=== PATIENT | female | born 1970 | race Caucasian/White ===

== ENCOUNTER 2022-01-24 13:22 | Outpatient (RCR) | payer OTHER, SELFPAY | END 2022-02-05 23:59 | disposition home or self-care (01) | LOC: CCIC 13:22 | PROVIDERS: PCP Internal Medicine; Visit Provider Internal Medicine Hematology & Oncology | DX: C50.912 Malignant neoplasm of unspecified site of left female breast (principal); Z17.0 Estrogen receptor positive status [ER+]; Z79.811 Long term (current) use of aromatase inhibitors; R23.2 Flushing; N95.2 Postmenopausal atrophic vaginitis; G47.00 Insomnia, unspecified; F41.9 Anxiety disorder, unspecified; F32.A Depression, unspecified; I89.0 Lymphedema, not elsewhere classified; R63.4 Abnormal weight loss | CPT/HCPCS: 99212; 99213; 99214 ==

== ENCOUNTER 2022-07-27 15:46 | Outpatient (CLI) | payer OTHER, SELFPAY ==
[2022-07-27 17:10] LABS: Chloride* 104 mmol/L (96-114); Potassium* 4.2 mmol/L (3.6-5.1); Sodium* 137 mmol/L (135-149)
[2022-07-27 17:13] LABS: Blood Urea Nitrogen* 18 mg/dL (7-30); Carbon Dioxide* 24 mmol/L (20-32); Creatinine* 0.7 mg/dL (0.5-1.5); Estimated Glomerular Filt Rate 105 ml/min; Glucose* 87 mg/dL (60-115)
[2022-07-27 17:14] LABS: Calcium* 9.7 mg/dL (8.4-10.6)
== END 2022-07-27 15:47 | disposition home or self-care (01) ==
LOC: NFLDREF 15:47
PROVIDERS: PCP Internal Medicine; Visit Provider Internal Medicine
DX: Z01.818 Encounter for other preprocedural examination (principal)
CPT/HCPCS: 80048

== ENCOUNTER 2022-09-22 07:59 | Outpatient (CLI) | payer OTHER, SELFPAY ==
--- NOTE | 2022-09-22 08:15 | CRLHL7_ITS ---
For Patients: As a result of the Cures Act, medical imaging exams and procedure reports are released immediately into your electronic medical record. You may view this report before your referring provider. If you have questions, please contact your health care provider. LEFT BREAST ULTRASOUND CLINICAL HISTORY: LEFT breast swelling and pain post surgery. COMPARISON: 07/24/2018 ultrasound, 04/29/2018 breast MRI. TECHNIQUE: Real-time ultrasound imaging of LEFT breast with imaging documentation. FINDINGS: Postoperative changes mastectomy with implant reconstruction noted on the LEFT including recent postoperative changes of breast implant revision. There is mild diffuse increased vascularity within the LEFT breast tissue particularly laterally with associated heterogeneously hypoechoic edematous tissue without drainable fluid collection or discernible abscess. Trace amount of fluid surrounds the implant at the medial aspect. IMPRESSION: Sonographic findings are most consistent with mastitis involving the lateral breast tissue without drainable abscess or seroma. RECOMMENDATIONS: Clinical follow-up. Results and recommendations were discussed with the patient at the time of the exam. BI-RADS Category 2: Benign Dictated by Toby Martinez MD @ 09/22/2022 9:24:25 AM PT/Dictated by: Toby Martinez MD @ 09/22/2022 9:24:00 AM (Electronically Signed)
== END 2022-09-22 08:00 | disposition home or self-care (01) ==
PROVIDERS: PCP Internal Medicine; Visit Provider Physician Assistant
DX: N63.20 Unspecified lump in the left breast, unspecified quadrant (principal); C50.412 Malignant neoplasm of upper-outer quadrant of left female breast; L03.319 Cellulitis of trunk, unspecified
CPT/HCPCS: 76642

== ENCOUNTER 2022-10-06 11:00 | Outpatient (CLI) | payer OTHER, SELFPAY ==
--- NOTE | 2022-10-06 11:15 | CRLHL7_ITS ---
For Patients: As a result of the Cures Act, medical imaging exams and procedure reports are released immediately into your electronic medical record. You may view this report before your referring provider. If you have questions, please contact your health care provider. LEFT BREAST ULTRASOUND INDICATION: History of breast cancer. Mastectomies in 2018. Breast implants. The breast implants were removed, and new implants placed August 2022. Follow-up seroma/hematoma. TECHNIQUE: Directed LEFT breast ultrasound with this radiologist present. COMPARISON: 09/22/2022. FINDINGS: Soft tissue edema inferolateral LEFT breast between the 4 and 5 o`clock position. The central upper outer and upper inner quadrants of the LEFT breast are negative for any significant edema. No seroma. Trace fluid in the soft tissues inferomedially at the 6 to 7 o`clock position. These findings were discussed in detail with the patient. IMPRESSION: No evidence for breast seroma/hematoma or other mass. BI-RADS Category 1: Negative A lay language report of this examination will be provided to the patient. Dictated by: Scott Benavides MD @10/06/2022 11:47:53 AM j/Dictated by: Scott Benavides MD @ 10/06/2022 11:47:00 AM (Electronically Signed)
== END 2022-10-06 11:01 | disposition home or self-care (01) ==
LOC: US 11:00
PROVIDERS: PCP Internal Medicine; Visit Provider Physician Assistant
DX: N63.20 Unspecified lump in the left breast, unspecified quadrant (principal); Z85.3 Personal history of malignant neoplasm of breast; Z98.82 Breast implant status
CPT/HCPCS: 76642

== ENCOUNTER 2023-01-18 07:32 | Outpatient (CLI) | payer OTHER, SELFPAY | END 2023-01-18 07:33 | disposition home or self-care (01) | LOC: NFLDREF 15:14 | PROVIDERS: PCP Internal Medicine; Referring Provider Internal Medicine; Visit Provider Internal Medicine | DX: E78.5 Hyperlipidemia, unspecified (principal); I10 Essential (primary) hypertension | CPT/HCPCS: 80048; 80061 ==

== ENCOUNTER 2023-02-01 14:20 | Outpatient (RCR) | payer OTHER, SELFPAY | END 2023-02-10 23:59 | disposition home or self-care (01) | LOC: CCIC 14:20 | PROVIDERS: PCP Internal Medicine; Visit Provider Internal Medicine Hematology & Oncology | DX: C50.912 Malignant neoplasm of unspecified site of left female breast (principal); Z17.0 Estrogen receptor positive status [ER+]; R23.2 Flushing; T45.1X5A Adverse effect of antineoplastic and immunosuppressive drugs, initial encounter; N95.2 Postmenopausal atrophic vaginitis; G47.00 Insomnia, unspecified; F32.A Depression, unspecified; I89.0 Lymphedema, not elsewhere classified; R63.4 Abnormal weight loss | CPT/HCPCS: 99212; 99213; 99214 ==

== ENCOUNTER 2023-06-21 11:54 | Outpatient (CLI) | payer OTHER, SELFPAY ==
--- NOTE | 2023-06-21 15:30 | CRLHL7_ITS ---
For Patients: As a result of the Century Cures Act, medical imaging exams and procedure reports are released immediately into your electronic medical record. You may view this report before your referring provider. If you have questions, please contact your health care provider. DXA BONE MINERAL DENSITY STUDY Reason for exam: Flushing related Aromate inhibitor therapy HX of breast cancer. Current height (in): 65. Weight (lb): 175. Menopause age: 49. Ethnicity: White. 1. Have you had a previous hip or vertebral fracture? No. 2. Have you had any fractures during your adult life which did not result from significant trauma (e.g., auto accident)? No. 3. Did either of your parents have a hip fracture? No. 4. Do you smoke? No. 5. Have you ever taken Glucocorticoids? No. 6. Do you have rheumatoid arthritis? No. 7. Do you have secondary osteoporosis? No. 8. Do you drink 3 or more alcoholic drinks per day? No. 9. Are you being treated for osteoporosis? No. 10. Have you ever taken any of the following medications: Actonel, Evista, Fosamax, Miacalcin, Reclast, Boniva, Forteo, HRT (i.e. estrogen/hormone therapy), Protelos, Prolia, Vitamin D, Calcium, other ??? please specify. ANSWER: Yes, Vitamin D. 11. Do you have any of the following medical conditions: Anorexia or bulimia, asthma or emphysema, end stage renal disease, hyperparathyroidism, any seizure disorders, cancer, inflammatory bowel diseases, hysterectomy, other ??? please specify. ANSWER: Yes, cancer. 12. What was your maximum height (inches)? 65. 13. Do you perform weight bearing exercise regularly? No. 14. Do you regularly consume dairy products? Yes. 15. Do you drink caffeinated beverages? Yes. 16. At what age did your period start? 13. 17. Are you premenopausal? No. 18. How many full term pregnancies have you had? 3. 19. Have you ever missed your period for more than 6 months in a row (not including or menopause)? No. TECHNIQUE: Bone mineral density study was performed using the [employer]. FINDINGS: The results of the study expressed as bone mineral density (BMD) are as follows: Lumbar spine L1 to L4: BMD: 1.056 g/cm2. T-score: 0.1. Z-score: 0.9. Neck Left: BMD: 0.708 g/cm2. T-score: -1.3. Z-score: -0.4. Right: BMD: 0.722 g/cm2. T-score: -1.1. Z-score: -0.3. Total Left: BMD: 0.929 g/cm2. T-score: -0.1. Z-score: 0.4. Right: BMD: 0.903 g/cm2. T-score: -0.3. Z-score: 0.2. IMPRESSION: Osteopenia. *Comparison exams done prior to 12/2019 were performed on different unit, SPEED[facility]O. COMPARISON: Compared with scan of 10/07/2020, the bone mineral density has decreased by 6.0 percent at the spine and decreased by 4.0 percent at the hip. FRAX 10-year Fracture Risk Major Osteoporotic Fracture: 4.7 percent Hip Fracture: 0.3 percent Reported Risk Factors: [place] () Neck BMD=0.708, BMI=29.1 Toby Martinez M.D. Diagnostic Radiologist [email or web address] SANDOR/Dictated by: Toby Martinez MD @ 06/22/2023 10:43:00 AM (Electronically Signed)
== END 2023-06-21 11:55 | disposition home or self-care (01) ==
LOC: RAD 11:55
PROVIDERS: PCP Internal Medicine; Visit Provider Internal Medicine Hematology & Oncology
DX: R23.2 Flushing (principal); M85.89 Other specified disorders of bone density and structure, multiple sites; T45.1X5A Adverse effect of antineoplastic and immunosuppressive drugs, initial encounter; C50.912 Malignant neoplasm of unspecified site of left female breast; N95.1 Menopausal and female climacteric states
CPT/HCPCS: 77080

== ENCOUNTER 2023-07-30 14:45 | Outpatient (RCR) | payer OTHER, SELFPAY | END 2024-01-26 23:59 | disposition home or self-care (01) | LOC: CCIC 14:45 | PROVIDERS: PCP Internal Medicine; Visit Provider Physician Assistant | DX: C50.912 Malignant neoplasm of unspecified site of left female breast (principal); Z17.0 Estrogen receptor positive status [ER+]; Z79.811 Long term (current) use of aromatase inhibitors; Z90.13 Acquired absence of bilateral breasts and nipples; R23.2 Flushing; T45.1X5A Adverse effect of antineoplastic and immunosuppressive drugs, initial encounter; I10 Essential (primary) hypertension; M85.80 Other specified disorders of bone density and structure, unspecified site; Z82.71 Family history of polycystic kidney | CPT/HCPCS: 99214; 99215; G0463 ==

== ENCOUNTER 2023-09-19 11:26 | Outpatient (CLI) | payer OTHER, SELFPAY | END 2023-09-19 11:27 | disposition home or self-care (01) | LOC: NFLDREF 09-28 08:47 | PROVIDERS: PCP Internal Medicine; Referring Provider Internal Medicine; Visit Provider Nurse Practitioner Family | DX: N30.00 Acute cystitis without hematuria (principal); M54.50 Low back pain, unspecified | CPT/HCPCS: 87086; 87186 ==

== ENCOUNTER 2024-04-23 07:38 | Outpatient (CLI) | payer OTHER, SELFPAY ==
--- OUTSIDE RECORDS SUMMARY | 2024-04-23 10:38 | XMS_ITS | Referral Summary ---
Author Organization [facility] Address [address] [place] [address] Care Team Providers Care Physical Testing Supervisor Name Role Phone Unavailable Primary Care Provider Unavailabl e Source Comments Patient records contain information from all sites at [facility]. For routine questions regarding patient records, call [phone] during business hours, M-F 8:00 AM - 5:00 PM Central Time. Record requests for emergency care only can be directed to [phone] at any time.[facility] Social History Tobacco Use Types Packs/Day Years Used Date Smoking Tobacco: Never Assessed Overall Financial Resource Strain (CARDIA) Answe r Date Recorded How hard is it for you to pa y for the very basics like food, housing, medical care, and heating? Somewhat hard 04/04/2023 Exercise Vital Sign Answer Date Recorde d On average, how many days pe r week do you engage in moderate to strenuous exercise (like a brisk walk)? 5 days 04/04/2023 On average, how many minutes do you engage in exercise at this level? 10 min 04/04/2023 Hunger Vital Sign Answer Date Recorded Within the past 12 months, y ou worried that your food would run out before you got the money to buy more. Never true 04/04/20 23 Within the past 12 months, t he food you bought just didn't last and you didn't have money to get more. Never true 04/04/2023 PRAPARE - Transportation Answer Date Re corded In the past 12 months, has l ack of transportation kept you from medical appointments or from getting medications? No 03/10 In the past 12 months, has l ack of transportation kept you from meetings, work, or from getting things needed for daily living? No 04/04/2023 Nutrition Answer Date Recorded Nutrition: EVOO Fat Source Unknown 04/04 On average, how many serving s of fruits and vegetables do you eat per day (serving size is equal to 1 cup or approximately the size of a tennis ball)? 0-2 04/04/2023 Dental Answer Date Recorded Dental: Regular Dentist No 04/04/20 Employment Answer Date Recorded Employment status Employed and actively working without restrictions 04/04/2023 Housing Stability Answer Date Recorded What is your living situation today? 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
--- OUTSIDE RECORDS SUMMARY | 2024-04-23 10:38 | XMS_ITS | Clinical Summary ---
Author Organization [facility] Address [address] [place] [address] Care Team Providers Care Snow Fence Erector Name Role Phone Petra Edward MD Primary Care Provider [phone] Allergies No known active allergies Medications Medication Sig Dispensed Refills Start Date End Date Status Calcium Carb-Cholecalcifero l 500-15 MG-MCG TABS Take 1 tablet by mouth Active lisinopril (ZESTRIL) 20 MG tablet Take 20 mg by mouth Activ e magnesium oxide (MAG-OX) 400 MG tablet Take 400 mg by mouth Active letrozole (FEMARA) 2.5 MG tablet Take 2.5 mg by mouth daily Active Biotin 10 MG CAPS Active omeprazole 20 MG tablet Take 20 mg by mouth daily Active oxybutynin (DITROPAN) 5 MG tablet Take 5 mg by mouth 3 times daily Active simvastatin (ZOCOR) 10 MG tablet Take 10 mg by mouth At Bedtime Active SUMAtriptan (IMITREX) 100 MG tablet Take 100 mg by mouth at onset of headache for migraine Active venlafaxine (EFFEXOR XR) 150 MG 24 hr capsule Take 150 mg by mouth daily Active zolpidem (AMBIEN) 5 MG tablet Take 5 mg by mouth nightly as needed for sleep Active oxyCODONE (ROXICODONE) 5 MG tabletIndications:S tatus post breast implant removal Take 1 tablet (5 mg) by mouth every 6 hours as needed for moderate to severe pain (not controlled with Tylenol) 10 tablet 11/01/2022 Active senna-docusate (SENOKOT-S/PERICOLA CE) 8.6-50 MG tabletIndications:S tatus post breast implant removal Take 1-2 tablets by mouth 2 times daily 20 tablet 11/01/2022 Active Social History Tobacco Use Types Packs/Day Years Used Date Smoking Tobacco: Never Smokeless Tobacco: Never Tobacco Cessation:Counseling Given: Not Answered Alcohol Use Standard Drinks/Week Comments Yes 0 (1 standard drink = 0.6 oz pur e alcohol) couple on the weekend Adolescent Education Answer Date Record ed Getting School Help Needed Not on file 04/24 Sex and Gender Information Value Date Recorded Sex Assigned at Not on file Gender Identity Not on file Sexual Orientation Not on file Last Filed Vital Signs Vital Sign Reading Time Taken Comments Blood Pressure 140/88 11/01/2022 11:05 AM CDT Pulse 80 11/01/2022 11:05 AM CDT Temperature 36.4 ??C (97.5 ??F) 11/01/2022 11:05 AM C DT Respiratory Rate 16 11/01/2022 11:05 AM CDT Oxygen Saturation 98% 11/01/2022 11:05 AM CDT Inhaled Oxygen Concentration - - Weight 83.6 kg (184 lb 4.8 oz) 11/01/2022 6:00 A M CDT Height 165.1 cm (5' 5) 11/01/2022 6:00 AM CDT Body Mass Index 30.67 11/01/2022 6:00 AM CDT Plan of Treatment Health Maintenance Due Date Last Done Comments ADVANCE CARE PLANNING 1971 ANNUAL REVIEW OF HM ORDERS 1971 CT COLONOGRAPHY 1971 FIT 1971 FLEX SIG 1971 GLUCOSE 1971 LIPID 1971 YEARLY PREVENTIVE VISIT 1971 sDNA (Cologuard) 1971 Pneumococcal Vaccine: Pediatrics (0 to 5 Years) and At-Risk Patients (6 to 64 Years) (1 of 2 - PCV) 09/23/1977 COLONOSCOPY 09/23/1981 COLORECTAL CANCER SCREENING 09/23/1981 HIV SCREENING 09/23/1986 HEPATITIS C SCREENING 09/23/1989 ZOSTER IMMUNIZATION (1 of 2) 09/23/1990 PAP 09/23/1992 DTAP/TDAP/TD IMMUNIZATION (3 - Td or Tdap) 04/26/2022 04/26/2012, 05/02/2006, 12/29/2003, Additional history exists PHQ-2 (once per calendar year) 2023 COVID-19 Vaccine (5 - 2024-25 season) 2024 04/05/2022, 04/06/2021, 07/27/2020, Additional history exists INFLUENZA VACCINE (#1) 2024 , 04/06/2021, 04/14/2020, Additional history exists RSV VACCINE (1 - 1-dose 75+ series) 09/23/2046 HEPATITIS B IMMUNIZATION Completed 015, 07/30/2014, 03/11/2014 HPV IMMUNIZATION Aged Out No longer e ligible based on patient's age to complete this topic MENINGITIS IMMUNIZATION Aged Out No l onger eligible based on patient's age to complete this topic RSV MONOCLONAL ANTIBODY Aged Out No l onger eligible based on patient's age to complete this topic Medical Devices Implanted Type Area Water Main Pipe Layer Device Identifier Shelf Expiration Date Model / Serial / Lot Graft Alloderm [id number] Charge Per Sq Cm= 320 Units - [id number] Implanted:Qt y: 320 on 08/21/2022 by Beverly Coleman MD at [facility] Bone/Tissue /Biologic Left: Breast [employer] 03/08/2024 [id number] / [id number] / [id number] Graft Alloderm [id number] Charge Per Sq Cm= 320 Units - [id number] Implanted:Qt y: 320 on 08/21/2022 by Beverly Coleman MD at [facility] Bone/Tissue /Biologic Right: Breast [employer] 02/06/2024 [id number] / [id number] / [id number] Imp Breast Gel Inspira Soft Touch Full 695ml Ssf-695 - [id number] Implanted:Qt y: 1 on 08/21/2022 by Beverly Coleman MD at [facility] Breast Implant/Tis aguila Mechanical Assembly Right: Breast [employer] [id number] 04/06/2024 SSF-695 / [id number] / Explanted Type Area Water Main Pipe Layer Device Identifier Shelf Expiration Date Model / Serial / Lot Imp Breast Gel Inspira Soft Touch Full 695ml Ssf-695 - [id number] Implanted:Qt y: 1 on 08/21/2022 by Beverly Coleman MD at [facility] Explanted:Qt y: 1 on 11/01/2022 by Beverly Coleman MD at [facility] Breast Implant/Tis aguila Mechanical Assembly Left: Breast [employer] [id number] 06/25/2025 [facility]-695 / [id number] / Care Teams Snow Fence Erector Relationship Specialty Start Date End Date Petra Edward MD [facility] [place] [address] PCP - General Internal Medicine 08/21/22
--- OUTSIDE RECORDS SUMMARY | 2024-04-23 10:38 | XMS_ITS | Clinical Summary ---
Author Organization [facility] Address [address] [place] [address] Care Team Providers Care Study Abroad Coordinator Name Role Phone Unavailable Primary Care Provider Unavailabl e Source Comments Patient records contain information from all sites at [facility]. For routine questions regarding patient records, call [phone] during business hours, M-F 8:00 AM - 5:00 PM Central Time. Record requests for emergency care only can be directed to [phone] at any time.[facility] Social History Tobacco Use Types Packs/Day Years [...] your living situation today? 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 Gender Identity Female 04/03/2023 4:00 PM CDT [...] 04/04/2023 1:43 PM CDT Plan of Treatment Health Maintenance Due Date Last Done Comments CT Colonography 1971 Cologuard 1971 Colonoscopy 1971 Colorectal Cancer Screening 1971 FIT 1971 HIV Screening 1971 Hepatitis C Screening 1971 Lipid (Cholesterol) Screening 1971 Mammogram 1971 Cervical Cancer Screening 04/09/2018 04/09/2015 Fasting Glucose for Diabetes Screening 07/27/2021 07/27/2018 Zoster Vaccines (1 of 2) 09/23/2021 DTaP,Tdap,and Td Vaccines (2 - Td or Tdap) 04/26/2022 04/26/2012, 05/02/2006, 12/29/2003, Additional history exists Depression Screening (Annual PHQ-2) 07/09/2023 COVID-19 Vaccine ( season) 2024 04/03/2023, 04/05/2022, 04/06/2021, Additional history exists Influenza Vaccine (#1) 2024 , 04/05/2022, 04/06/2021, Additional history exists Hepatitis B Vaccines Completed 10/01/2014, 07/30/2014, 03/11/2014 Pneumococcal vaccine (0-64 years) Aged Out No longer eligible based on patient's age to complete this topic
--- OUTSIDE RECORDS SUMMARY | 2024-04-23 10:38 | XMS_ITS | Referral Summary ---
Author Organization [facility] Address [address] [place] [address] Care Team Providers Care Hairspring Truer Name Role Phone Petra Edward MD Primary Care Provider [phone] Allergies No known active allergies Medications Medication [...] 11/01/2022 6:00 AM CDT Plan of Treatment Not on file Medical Devices Implanted Type Area Jig Maker Device Identifier Shelf Expiration Date Model / Serial / Lot Graft Alloderm [id number] Charge Per Sq Cm= 320 Units - [id number] Implanted:Qt y: 320 on 08/21/2022 by Beverly Coleman MD at [facility] Bone/Tissue /Biologic Left: Breast [employer] 03/08/2024 [id number] / [id number] / [id number] Graft Alloderm [id number] Charge Per Sq Cm= 320 Units - [id number] Implanted:Qt y: 320 on 08/21/2022 by Beverly Coleman MD at [facility] Bone/Tissue /Biologic Right: Breast [employer] 02/06/2024 [id number] / [id number] / [id number] Imp Breast Gel Inspira Soft Touch Full 695ml Ssf-695 - [id number] Implanted:Qt y: 1 on 08/21/2022 by Beverly Coleman MD at [facility] Breast Implant/Tis aguila Environmental Service Aide Right: Breast [employer] [id number] 04/06/2024 [facility]-695 / [id number] / Explanted Type Area Jig Maker Device Identifier Shelf Expiration Date Model / Serial / Lot Imp Breast Gel Inspira Soft Touch Full 695ml [facility]-695 - [id number] Implanted:Qt y: 1 on 08/21/2022 by Beverly Coleman MD at [facility] Explanted:Qt y: 1 on 11/01/2022 by Beverly Coleman MD at [facility] Breast Implant/Tis aguila Environmental Service Aide Left: Breast [employer] [id number] 06/25/2025 [facility]-695 / [id number] / Care Teams Hairspring Truer Relationship Specialty Start Date End Date Petra Edward MD [facility] & [address] [address] PCP - General Internal Medicine 08/21/22
--- OUTSIDE RECORDS SUMMARY | 2024-04-23 10:38 | XMS_ITS ---
Author Organization [facility] Address [address] [place] [address] Care Team Providers Care Regional Wildlife Agent Name Role Phone Unavailable Unavailable Unavailable Surgery Details Not on file Complications Check Surgery Details section. Procedure Estimated Blood Loss Check Surgery Details section. Procedure Findings Check Surgery Details section. Procedure Specimens Taken Check Surgery Details section.
== END 2024-04-23 07:39 | disposition home or self-care (01) ==
LOC: NFLDREF 10:32
PROVIDERS: PCP Internal Medicine; Referring Provider Internal Medicine; Visit Provider Internal Medicine
DX: E78.5 Hyperlipidemia, unspecified (principal); I10 Essential (primary) hypertension
CPT/HCPCS: 80048; 80061

== ENCOUNTER 2024-05-07 10:18 | Day surgery (SDC) | payer OTHER, SELFPAY ==
[2024-05-07] VITALS (8 sets, daily range): BP systolic 153–173; BP diastolic 77–94; PULSE 74–84; RESP 12–20; TEMP 36.2–36.3; O2SAT 95–98; BMI 33.3
--- OUTSIDE RECORDS SUMMARY | 2024-05-07 10:21 | XMS_ITS ---
Author Organization [facility] Address [address] [place] [address] Care Team Providers Care Mold Sheet Cleaner Name Role Phone Unavailable Unavailable Unavailable Surgery Details Not on file Complications Check Surgery Details section. Procedure Estimated Blood Loss Check Surgery Details section. Procedure Findings Check Surgery Details section. Procedure Specimens Taken Check Surgery Details section.
--- OUTSIDE RECORDS SUMMARY | 2024-05-07 10:21 | XMS_ITS | Referral Summary ---
Author Organization [facility] Address [address] [place] [address] Care Team Providers Care Ortho Nurse Name Role Phone Petra Edward MD Primary Care Provider [phone] Allergies No known active allergies Medications Calcium Carb-Cholecalci ferol 500-15 MG-MCG TABS Take 1 tablet by mouth Active lisinopril (ZESTRIL) 20 MG tablet Take 20 mg by mouth Active magnesium oxide (MAG-OX) 400 MG tablet Take [...] for sleep Active oxyCODONE (ROXICODONE) 5 MG tabletIndicatio ns:Status post breast implant removal Take 1 tablet (5 mg) by mouth every 6 hours as needed for moderate to severe pain (not controlled with Tylenol) 10 tablet 3 Active senna-docusate (SENOKOT-S/CARLI COLACE) 8.6-50 MG tabletIndicatio ns:Status post breast implant removal Take 1-2 tablets by mouth 2 times daily 20 tablet 3 Active Social History Tobacco Use Types Packs/Day Years Used Date Smoking Tobacco: Never Smokeless Tobacco: Never Tobacco Cessation:Counseling Given: Not Answered Alcohol Use Standard Drinks/Week Comments Yes 0 (1 standard drink = 0.6 oz pur e alcohol) couple on the weekend Adolescent Education Answer Date Record ed Getting School Help Needed Not on file 04/24 Comments No Sex and Gender Information Value Date Recorded Sex Assigned at Not on file 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 Gender Identity Not on file Sexual Orientation [...] on file Medical Devices Implanted Type Area Retail Coordinator Device Identifier Shelf Expiration Date Model / Serial / Lot Graft Alloderm [id number] Charge Per Sq Cm= 320 Units - [id number] Implanted:Qt y: 320 on 08/21/2022 by Beverly Coleman MD at [facility] Bone/Tissue /Biologic Left: Breast [employer] 03/08/2024 [id number] / [id number] / [id number] Graft Alloderm [id number] Charge Per Sq Cm= 320 Units - [id number] Implanted:Qt y: 320 on 08/21/2022 by Beverly Coleman MD at [facility] Bone/Tissue /Biologic Right: Breast [employer] 02/06/2024 [id number] / [id number] / [id number] Imp Breast Gel Inspira Soft Touch Full 695ml [facility]-695 - [id number] Implanted:Qt y: 1 on 08/21/2022 by Beverly Coleman MD at [facility] Breast Implant/Tis aguila Produce Assistant Right: Breast [employer] [id number] 04/06/2024 [facility]-695 / [id number] / Explanted Type Area Retail Coordinator Device Identifier Shelf Expiration Date Model / Serial / Lot Imp Breast Gel Inspira Soft Touch Full 695ml [facility]-695 - [id number] Implanted:Qt y: 1 on 08/21/2022 by Beverly Coleman MD at [facility] Explanted:Qt y: 1 on 11/01/2022 by Beverly Coleman MD at [facility] Breast Implant/Tis aguila Produce Assistant Left: Breast [employer] [id number] 06/25/2025 [facility]-695 / [id number] / Care Teams Ortho Nurse Relationship Specialty Start [place] [address] PCP - General Internal Medicine 08/21/22
--- OUTSIDE RECORDS SUMMARY | 2024-05-07 10:21 | XMS_ITS | Clinical Summary ---
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 Gender Identity Not on file Sexual Orientation [...] (once per calendar year) 2023 COVID-19 Vaccine ( season) 2024 04/05/2022, 04/06/2021, 07/27/2020, Additional history [...] this topic Medical Devices Implanted Type Area Underbaster Device Identifier Shelf Expiration Date Model / Serial / Lot Graft Alloderm [id number] Charge Per Sq Cm= 320 Units - [id number] Implanted:Qt y: 320 on 08/21/2022 by Beverly Coleman MD at [facility] Bone/Tissue /Biologic Left: Breast [employer] 03/08/2024 [id number] / [id number] / [id number] Graft Alloderm [id number] Charge Per Sq Cm= 320 Units - [id number] Implanted:Qt y: 320 on 08/21/2022 by Beverly Coleman MD at [facility] Bone/Tissue /Biologic Right: Breast [employer] 02/06/2024 [id number] / [id number] / [id number] Imp Breast Gel Inspira Soft Touch Full 695ml f-695 - [id number] Implanted:Qt y: 1 on 08/21/2022 by Beverly Coleman MD at [facility] Breast Implant/Tis aguila Reinforced Ironworker Right: Breast [employer] [id number] 04/06/2024 [facility]-695 / [id number] / Explanted Type Area Underbaster Device Identifier Shelf Expiration Date Model / Serial / Lot Imp Breast Gel Inspira Soft Touch Full 695ml [facility]-695 - [id number] Implanted:Qt y: 1 on 08/21/2022 by Beverly Coleman MD at [facility] Explanted:Qt y: 1 on 11/01/2022 by Beverly Coleman MD at [facility] Breast Implant/Tis aguila Reinforced Ironworker Left: Breast [employer] [id number] 06/25/2025 [facility]-695 / [id number] / Care Teams Physician President Relationship Specialty Start Date End Date Petra Edward MD [facility] [place] [id number] PCP - General Internal Medicine 08/21/22
--- OUTSIDE RECORDS SUMMARY | 2024-05-07 10:21 | XMS_ITS | Clinical Summary ---
Author Organization [facility] Address [place], [place] [address] Care Team Providers Care Mission Coordinator Name Role Phone Petra Edward MD Primary Care Provider +1- [phone] Allergies No known active allergies Medications Medication Sig Dispensed Refills Start Date End Date Status venlafaxine (EFFEXOR XR) 150 mg Extended-Release capsuleIndications:A djustment disorder with depressed mood TAKE ONE CAPSULE BY MOUTH EVERY MORNING 30 capsule 0 03/01/2013 Active SUMAtriptan (IMITREX) 100 mg tabletIndications:Mi graine, unspecified, without mention of intractable migraine without mention of status migrainosus TAKE ONE TABLET BY MOUTH WITH ONSET OF HEADACHE. MAY REPEAT AFTER 2HOURS. MAX OF 200 MG/DAY 3 tablet 0 05/29/2013 Active sennosides-docusate, 8.6-50 mg, (SENOKOT S) 8.6-50 mg tabletIndications:Le ft breast abscess Take 1 tablet by mouth 2 times daily if needed for Constipation. 20 tablet 07/29/2018 Active oxyCODONE-acetaminop hen, 5-325 mg, (PERCOCET) 5-325 mg per tabletIndications:Le ft breast abscess Take 1-2 tablets by mouth every 4 hours if needed for Pain Max acetaminophen dose: 4000mg in 24 hrs. 15 tablet 07/29/2018 Active lisinopril (PRINIVIL; ZESTRIL) 20 mg tablet Take 20 mg by mouth once daily. Active oxyCODONE-acetaminop hen, 5-325 mg, (PERCOCET) 5-325 mg per tabletIndications:Le ft breast abscess,Cellulitis of left breast Take 1-2 tablets by mouth every 4 hours if needed for Pain (For moderate pain) Max acetaminophen dose: 4000mg in 24 hrs. 20 tablet 07/29/2018 Active Bismuth Tribrom-Petrolatum,W h (XEROFORM) 5 X 9 bndgIndications:Cell ulitis of left breast,Left breast abscess Apply 1 Strip topically to affected area(s). Apply strips of Xeroform daily over your breast incisions on both sides, after your shower. 5 Each 1 07/29/2018 Active oxyCODONE-acetaminop hen, 5-325 mg, (PERCOCET) 5-325 mg per tabletIndications:S/ P breast reconstruction Take 1-2 tablets by mouth every 4 hours if needed for Pain Max acetaminophen dose: 4000mg in 24 hrs. 20 tablet 05/12/2019 Active sennosides-docusate, 8.6-50 mg, (SENOKOT S) 8.6-50 mg tabletIndications:S/ P breast reconstruction Take 1-2 tablets by mouth 2 times daily. 20 tablet 05/12/2019 Active magnesium oxide (MAG-OX 400) 400 mg tablet Take 400 mg by mouth once daily. Active calcium carbonate-vitamin D3 500mg (1,250mg) -600 unit tab Take 1 Tab by mouth 2 times daily. Active aluminum chloride (DRYSOL) 20 % external solution Apply topically to affected area(s) at bedtime. 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 Resolved Problems Problem Noted Date Diagnosed Date Resolved Date Other malignant neoplasm of skin of trunk, except scrotum 12/04/2007 12/04/2007 Immunizations Name Administration Dates Next Due Influenza, IIV3 (Age >=3 years) 04/13/2011 Tdap 04/26/2012 Family History Medical History Relation Name Comments Cancer-breast Maternal Aunt dx age 50 Thyroid Disease Maternal Aunt Thyroid Disease Mother Cancer-colon No Family History Cancer-ovarian No Family History Relation Name Status Comments Maternal Aunt Mother Social History Tobacco Use Types Packs/Day Years Used Date Smoking Tobacco: Never Smokeless Tobacco: Never Alcohol Use Standard Drinks/Week Comments No 0 (1 standard drink = 0.6 oz pur e alcohol) Sex and Gender Information Value Date Recorded Sex Assigned at Not on file Gender Identity Not on file Sexual Orientation Not on file Obstetrics History Last Filed Vital Signs Vital Sign Reading Time Taken Comments Blood Pressure 168/97 05/12/2019 2:30 PM CUSTOMER RECORDS DIVISION SUPERVISOR Pulse 87 05/12/2019 2:30 PM CUSTOMER RECORDS DIVISION SUPERVISOR Temperature 36.6 ??C (97.9 ??F) 05/12/2019 1:45 PM CS T Respiratory Rate 16 05/12/2019 2:30 PM CUSTOMER RECORDS DIVISION SUPERVISOR Oxygen Saturation 93% 05/12/2019 2:30 PM CUSTOMER RECORDS DIVISION SUPERVISOR Inhaled Oxygen Concentration - - Weight 90.3 kg (199 lb) 05/12/2019 10:23 AM CUSTOMER RECORDS DIVISION SUPERVISOR Height 165.1 cm (5' 5) 05/12/2019 10:23 AM CUSTOMER RECORDS DIVISION SUPERVISOR Body Mass Index 33.12 05/12/2019 10:23 AM CUSTOMER RECORDS DIVISION SUPERVISOR Plan of Treatment Health Maintenance Due Date Last Done Comments Depression screening for age 12+ 1983 HIV for age 15-65 09/23/1986 BMI (ht and wt on same day) for age 18+ 09/23/1989 Hepatitis C screening for ag e 18-79 09/23/1989 Colonoscopy through age 75 09/23/2016 Mammogram for age 45-75 09/23/2016 05/08/20 12, 10/04/2010, 09/28/2010 Lipids for age 45-75 04/26/2017 04/26/2012, 09/30/2010 Pap test for age 21-65 04/09/2018 5, 04/09/2015, 09/23/2010 Zoster (shingles) series for age 50+ (1 of 2) 09/23/2021 Tetanus booster 04/26/2022 04/26/2012 COVID-19 vaccine series (2023- season) 2024 Influenza for age 50-64 03/09/2024 04/13/2011 Tdap Completed 04/26/2012 Pneumococcal series for age 6-64 Aged Out No longer eligible b ased on patient's age to complete this topic Medical Devices Implanted Type Area Consulting Services Manager Device Identifier Shelf Expiration Date Model / Serial / Lot [id number] east 800cc Inspira Cohesive Smooth Extra Full Gel Implanted:Qty: 1 on 05/12/2019 by Beverly Coleman MD at [facility] Explanted:at [facility] (Quantity not on file) Left: Breast [employer] - Inamed 02/03/2024 SCX-800# / [id number] / [id number] east 800cc Inspira Cohesive Smooth Extra Full Gel Implanted:Qty: 1 on 05/12/2019 by Beverly Coleman MD at [facility] Explanted:at [facility] (Quantity not on file) Right: Breast [employer] - Inamed 07/28/2023 SCX-800# / [id number] / Procedures Procedure Name Priority Date/Time Associated Diagnosis Comments MOSAIC FLOOR LAYER THIN PREP PAP SCREEN IMAGED Routine 04/09/2015 4:00 PM CDT XR MAMMO BILAT SCREEN FFDM (IA) Routine 05/08/2012 4:14 PM CDT Other screening mammogram LIPID PANEL W REFLEX MEASURED LDL Routine 04/26/2012 9:51 AM CDT Hyperlipemia from Last 3 Months or Most Recently Relevant to Health Maintenance Results * MOSAIC FLOOR LAYER THIN PREP PAP SCREEN IMAGED (04/09/2015 4:00 PM CDT) MOSAIC FLOOR LAYER CYTOLOGY See Anatomic Pathology case 04/17/2015 2:00 PM CDT [facility] Specimen (specimen) (Cervical/Vagina l) Client Collect / Unknown 04/09/2015 4:00 PM CDT 04/12/2015 1:10 PM CDT Juliane Gaspar MD PATHOLOGY/[facility]OLO GY [facility] [address] [place] [address], [place] * XR MAMMO BILAT SCREEN FFDM (05/08/2012 4:14 PM CDT) Anatomical Region Laterality Modality BREASTS, Breast Left, Breast Right Bilateral Mammography Impressions 05/09/2012 2:05 PM CDT ??There is no radiographic evidence for malignancy. ??Recommend annual mammograms. A lay language report of this examination will be provided to the patient. MAMMOGRAM ASSESSMENT: ??ACR 1 Negative Narrative 05/09/2012 2:05 PM CDT XR MAMMO BILAT SCREEN FFDM [G0202.0] CLINICAL HISTORY: ??This is an asymptomatic 41 y.o. patient. INDICATION FOR EXAM: Mammogram Screening. TECHNIQUE: CC & MLO views were obtained. ??This digital study was evaluated with the assistance of Computer-Aided Detection. ?? COMPARISON FILM: Yes 09/28/10 [facility] FINDINGS: ??Mammographically, the breast tissue is extremely dense. ??This may lower the sensitivity of mammography (>75% glandular). ??There are no dominant masses, suspicious micro calcifications or areas of architectural distortion. Procedure Note Rita Bond MD - 05/09/2012 XR MAMMO BILAT SCREEN FFDM [G0202.0] CLINICAL HISTORY: This is an asymptomatic 41 y.o. patient. INDICATION FOR EXAM: Mammogram Screening. TECHNIQUE: CC & MLO views were obtained. This digital study was evaluatedwith the assistance of Computer-Aided Detection. COMPARISON FILM: Yes 09/28/10 [facility] FINDINGS: Mammographically, the breast tissue is extremely dense. Thismay lower the sensitivity of mammography (>75% glandular). There are nodominant masses, suspicious micro calcifications or areas of architecturaldistortion. IMPRESSION: There is no radiographic evidence for malignancy. Recommendannual mammograms. A lay language report of this examination will be provided to the patient. MAMMOGRAM ASSESSMENT: ACR 1 Negative Cassi Rosales MD MAMMO * (ABNORMAL) LIPID PANEL W REFLEX MEASURED LDL (04/26/2012 9:51 AM CDT) CHOLESTEROL,TOTAL 210(H) 100 - 199 mg/dL [facility] TRIGLYCERIDES 135 <150 mg/dL [facility] HDL CHOLESTEROL 47 >40 mg/dL [facility] CHOL/HDL RATIO 4.47 <4.50 [facility] LDL CHOLESTEROL 136(H) <131 mg/dL [facility] PATIENT STATUS Non-Fasti ng [facility] Blood specimen (specimen) BLOOD SPECIMEN / Unknown 04/26/2012 9:51 AM CDT 04/26/2012 9:50 AM CDT Cassi Rosales MD CHEMISTRY [facility] [place]NAL ZIP [id number] [place] [address] from Last 3 Months or Most Recently Relevant to Health Maintenance Advance Directives * Full Code (Latest Code Status on File) Date Activated Date Inactivated Comments 05/12/2019 10:12 AM 05/12/2019 5:14 PM Question Answer Comments Code Status Discussion: Not Discussed * Full Code Date Activated Date Inactivated Comments 07/26/2018 2:21 PM 07/29/2018 11:27 AM Question Answer Comments Code Status Discussion: Not Discussed Care Teams Mission Coordinator Relationship Specialty Start Date End Date Petra Edward MD [address] [place], [place] [id number] PCP - General Internal Medicine 04/16/18
--- OUTSIDE RECORDS SUMMARY | 2024-05-07 10:21 | XMS_ITS | Clinical Summary ---
Author Organization [facility] Address [address] [place] [address] Care Team Providers Care Inspector Packer Glass Container Name Role Phone Unavailable Primary Care Provider Unavailabl e Source Comments Patient records contain information from all sites at [facility]. For routine questions regarding patient records, call [phone] during business hours, M-F 8:00 AM - 5:00 PM Central Time. Record requests for emergency care only can be directed to [phone] at any time.[facility] Social History Tobacco Use Types Packs/Day [...] your living situation today? I have a [facility] place to live 04/04/2023 Comments Unknown Sex and Gender Information Value Date Recorded Sex Assigned at Female 04/03/2023 4:00 PM CDT Legal Sex Female 10:59 AM HAIR MIXER Gender Identity Female 04/03/2023 4:00 PM CDT [...] 1971 Lipid (Cholesterol) Screening 1971 Mammogram 1971 Cervical/Vaginal Cancer Screening 04/09/2018 04/09/2015 Fasting Glucose for Diabetes Screening 07/27/2021 07/27/2018 Zoster Vaccines (1 of 2) 09/23/2021 DTaP,Tdap,and Td Vaccines (2 - Td or Tdap) 04/26/2022 04/26/2012, 05/02/2006, 12/29/2003, Additional history exists Depression Screening (Annual PHQ-2) 07/09/2023 COVID-19 Vaccine (2023- season) 2024 04/03/2023, 04/05/2022, 04/06/2021, Additional history exists Influenza Vaccine (#1) 2024 , 04/05/2022, 04/06/2021, Additional history exists Hepatitis B Vaccines Completed 10/01/2014, 07/30/2014, 03/11/2014 IPV Vaccines Aged Out No longer eligi ble based on patient's age to complete this topic Pneumococcal vaccine (0-64 years) Aged Out No longer eligible based on patient's age to complete this topic
--- OUTSIDE RECORDS SUMMARY | 2024-05-07 10:21 | XMS_ITS | Referral Summary ---
Author Organization [facility] Address [address] [place] [address] Care Team Providers Care Toolmaker Grade Three Name Role Phone Unavailable Primary Care Provider Unavailabl e Source Comments Patient records contain information from all sites at [facility]. For routine questions regarding patient records, call [phone] during business hours, M-F 8:00 AM - 5:00 PM Central Time. Record requests for emergency care only can be directed to [phone] at any time.[facility] Social History Tobacco Use Types Packs/Day [...] your living situation today? 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
[2024-05-07] MEDS: LIDOCAINE 1%-EPI 1:100,000 20 ML INFILTRATI (10:30)
[2024-05-07] MEDS: BUPIVACAINE 0.5% 30 ML INJECTION (10:30)
[2024-05-07] MEDS: ETHYL CHLORIDE 1 APPLICATION 1 APPLIC TOPICAL (10:38)
--- NOTE | 2024-05-07 11:24 | PM.ORPRC ---
Procedure Note Date of procedure: 05/07/24 Procedure: PREOPERATIVE DIAGNOSES: 1. Left de Quervain tenosynovitis-recalcitrant to nonoperative management POSTOPERATIVE DIAGNOSES: 1. Left de Quervain tenosynovitis-recalcitrant to nonoperative management NAME OF OPERATION: 1. Left de Quervain open 1st dorsal extensor compartment release with tenosynovectomy SURGEON: Raj Alfaro MD FLOOR AND WALL APPLIER LIQUID: Velma YODER - Of note, an assistant facility manager was critical for this case to aide in patient positioning, limb manipulation, tissue retraction, closure, & splinting. ANESTHESIA: Local anesthetic (via 50:50 mixture of 0.5% bupivacaine plain and 1% lidocaine with epi) 8ml total EBL: 2ml IMPLANTS: None. TOURNIQUET: None INDICATIONS: The patient is a pleasant, 53M who has battled left de Quervain tenosynovitis for a number of months. They have tried and failed nonoperative management including cortisone injection, bracing, medicines, ice, activity modification, etc. Therefore, surgery was indicated. FINDINGS: Abundant tenosynovitis along the left upper extremity 1st dorsal extensor compartments. Thickening to the 1st compartment sheath. PROCEDURE: Following a thorough discussion of risks, benefits, and alternatives, consent was obtained and the operative extremity was marked. The patient was brought to the operating room and placed supine on the operating table. Induction of anesthesia was achieved. Appropriate time out was performed identifying proper patient, site and procedure. The left upper extremity was prepped and draped in the appropriate sterile fashion using ChloraPrep prep. A transverse incision was made just proximal to the radial styloid. Sharp incision through skin and blunt dissection through subcutaneous tissue allowed us to identify and protect the crossing neurologic structures including the superficial branch of the radial nerve. The 1st dorsal extensor compartment was released on the more dorsal aspect. EPL and APB tendons were found to be within one compartment This was completely released and the tenosynovitis was resected along the tendons. At this stage, the wound was thoroughly irrigated with normal saline. Closure performed with 3-0 Vicryl subcutaneous and 4-0 Monocryl for subcuticular closure. Dressings were applied. She has a wrist brace at home that she will apply. The patient was awoken from anesthesia and transferred to PACU in stable condition. PLAN: 1. Elevate operative extremity. 2. Ice, acetominphen, ibuprofen, and/or Oxycodone PRN. 3. Follow up with PA visit in 7-10 days for wound check and OT initiation PRN.
== END 2024-05-07 11:40 | disposition home or self-care (01) ==
PROVIDERS: PCP Internal Medicine; Visit Provider Orthopaedic Surgery Sports Medicine
PROC: (CPT 25000; principal; 2024-05-07 11:45)
DX: M65.4 Radial styloid tenosynovitis [de Quervain] (principal)
CPT/HCPCS: 25116; J0665

== ENCOUNTER 2024-05-22 12:12 | Outpatient (CLI) | payer OTHER, SELFPAY ==
--- OUTSIDE RECORDS SUMMARY | 2024-05-22 12:14 | XMS_ITS | Clinical Summary ---
Author Organization [facility] Address [place], [place] [address] Care Team Providers Care Ball Shagger Name Role Phone Petra Edward MD Primary Care Provider +1- [phone] Allergies No known active allergies Medications Medication [...] Comments Blood Pressure 168/97 05/12/2019 2:30 PM TELEVISION MAINTENANCE MAN Pulse 87 05/12/2019 2:30 PM TELEVISION MAINTENANCE MAN Temperature 36.6 ??C (97.9 ??F) 05/12/2019 1:45 PM CS T Respiratory Rate 16 05/12/2019 2:30 PM TELEVISION MAINTENANCE MAN Oxygen Saturation 93% 05/12/2019 2:30 PM TELEVISION MAINTENANCE MAN Inhaled Oxygen Concentration - - Weight 90.3 kg (199 lb) 05/12/2019 10:23 AM TELEVISION MAINTENANCE MAN Height 165.1 cm (5' 5) 05/12/2019 10:23 AM TELEVISION MAINTENANCE MAN Body Mass Index 33.12 05/12/2019 10:23 AM TELEVISION MAINTENANCE MAN Plan of Treatment Health Maintenance Due Date [...] this topic Medical Devices Implanted Type Area Leather Scraper Device Identifier Shelf Expiration Date Model / Serial / Lot [id number] east 800cc Inspira Cohesive Smooth Extra Full Gel Implanted:Qty: 1 on 05/12/2019 by Beverly Coleman MD at [facility] Explanted:at [facility] (Quantity not on file) Left: Breast [employer] - Inamed 02/03/2024 SCX-800# / [id number] / [id number] east 800cc Inspira Cohesive Smooth Extra Full Gel Implanted:Qty: 1 on 05/12/2019 by Beverly Coleman MD at [facility] Explanted:at [facility] (Quantity not on file) Right: Breast [employer] - Inamed 07/28/2023 SCX-800# / [id number] / Procedures Procedure Name Priority Date/Time Associated Diagnosis Comments HYDRO PLANT SITE MANAGER THIN PREP PAP SCREEN IMAGED Routine 04/09/2015 4:00 PM CDT XR MAMMO BILAT SCREEN FFDM (IA) Routine 05/08/2012 4:14 PM CDT Other screening mammogram LIPID PANEL W REFLEX MEASURED LDL Routine 04/26/2012 9:51 AM CDT Hyperlipemia from Last 3 Months or Most Recently Relevant to Health Maintenance Results * HYDRO PLANT SITE MANAGER THIN PREP PAP SCREEN IMAGED (04/09/2015 4:00 PM CDT) HYDRO PLANT SITE MANAGER CYTOLOGY See Anatomic Pathology case 04/17/2015 2:00 PM CDT [facility] Specimen (specimen) (Cervical/Vagina l) Client Collect / Unknown 04/09/2015 4:00 PM CDT 04/12/2015 1:10 PM CDT Juliane Gaspar MD PATHOLOG[facility] [address] [place] [address], [place] * XR MAMMO BILAT SCREEN FFDM [...] Computer-Aided Detection. ?? COMPARISON FILM: Yes 09/28/10 [facility] FINDINGS: ??Mammographically, the breast tissue is extremely [...] of Computer-Aided Detection. COMPARISON FILM: Yes 09/28/10 [facility] FINDINGS: Mammographically, the breast tissue is extremely [...] CDT) CHOLESTEROL,TOTAL 210(H) 100 - 199 mg/dL [facility] TRIGLYCERIDES 135 <150 mg/dL [facility] HDL CHOLESTEROL 47 >40 mg/dL [facility] CHOL/HDL RATIO 4.47 <4.50 [facility] LDL CHOLESTEROL 136(H) <131 mg/dL [facility] PATIENT STATUS Non-Fasti ng [facility] Blood specimen (specimen) BLOOD SPECIMEN / Unknown 04/26/2012 9:51 AM CDT 04/26/2012 9:50 AM CDT Cassi Rosales MD CHEMISTRY [facility] INTERNAL ZIP [address] [place] [address] from Last 3 Months or Most Recently [...] Code Status Discussion: Not Discussed Care Teams Ball Shagger Relationship Specialty Start Date End Date Petra Edward MD [address] [place], [place] [id number] PCP - General Internal Medicine 04/16/18
--- OUTSIDE RECORDS SUMMARY | 2024-05-22 12:14 | XMS_ITS | Clinical Summary ---
Author Organization [facility] Address [address] [place] [address] Care Team Providers Care Medical Claims Processor Name Role Phone Unavailable Primary Care Provider Unavailabl e Source Comments Patient records contain information from all sites at [facility]. For routine questions regarding patient records, call [phone] during business hours, M-F 8:00 AM - 5:00 PM Central Time. Record requests for emergency care only can be directed to [phone] at any time.[facility] Social History Tobacco Use Types Packs/Day [...] your living situation today? I have a [facility] place to live 04/04/2023 Comments Unknown Sex and Gender Information Value Date Recorded Sex Assigned at Female 04/03/2023 4:00 PM CDT Legal Sex Female 10:59 AM GRADES 7 8 TUTOR Gender Identity Female 04/03/2023 4:00 PM CDT [...]
--- OUTSIDE RECORDS SUMMARY | 2024-05-22 12:14 | XMS_ITS | Clinical Summary ---
Author Organization [facility] Address [address] [place] [address] Care Team Providers Care Rental Counter Clerk Name Role Phone Petra Edward MD Primary Care Provider [phone] Allergies No known active allergies Medications Calcium [...] on file Legal Sex Female 4:17 AM SUPERVISOR CUSTOMER SERVICES Gender Identity Not on file Sexual Orientation [...] this topic Medical Devices Implanted Type Area Audio Experience Expert Device Identifier Shelf Expiration Date Model / Serial / Lot Graft Alloderm [id number] Charge Per Sq Cm= 320 Units - [id number] Implanted:Qt y: 320 on 08/21/2022 by Beverly Coleman MD at [facility] Bone/Tissue /Biologic Left: Breast [employer] 03/08/2024 [id number] / [id number] / [id number] Graft Alloderm [id number] Charge Per Sq Cm= 320 Units - [id number] Implanted:Qt y: 320 on 08/21/2022 by Beverly Coleman MD at [facility] Bone/Tissue /Biologic Right: Breast [employer] 02/06/2024 [id number] / [id number] / [id number] Imp Breast Gel Inspira Soft Touch Full 695ml f-695 - [id number] Implanted:Qt y: 1 on 08/21/2022 by Beverly Coleman MD at [facility] Breast Implant/Tis aguila Facial Operator Right: Breast [employer] [id number] 04/06/2024 SSF-695 / [id number] / Explanted Type Area Audio Experience Expert Device Identifier Shelf Expiration Date Model / Serial / Lot Imp Breast Gel Inspira Soft Touch Full 695ml [facility]-695 - [id number] Implanted:Qt y: 1 on 08/21/2022 by Beverly Coleman MD at [facility] Explanted:Qt y: 1 on 11/01/2022 by Beverly Coleman MD at [facility] Breast Implant/Tis aguila Facial Operator Left: Breast [employer] [id number] 06/25/2025 [facility]-695 / [id number] / Care Teams Rental Counter Clerk Relationship Specialty Start Date End Date Petra Edward MD [facility] [place] [id number] PCP - General Internal Medicine 08/21/22
--- OUTSIDE RECORDS SUMMARY | 2024-05-22 12:14 | XMS_ITS | Referral Summary ---
Author Organization [facility] Address [address] [place] [address] Care Team Providers Care Delinquent Account Clerk Name Role Phone Unavailable Primary Care Provider Unavailabl e Source Comments Patient records contain information from all sites at [facility]. For routine questions regarding patient records, call [phone] during business hours, M-F 8:00 AM - 5:00 PM Central Time. Record requests for emergency care only can be directed to [phone] at any time.[facility] Social History Tobacco Use Types Packs/Day Years [...] your living situation today? 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
--- OUTSIDE RECORDS SUMMARY | 2024-05-22 12:14 | XMS_ITS | Referral Summary ---
Author Organization [facility] Address [address] [place] [id number] Care Team Providers Care Customer Relations Representative Name Role Phone Petra Edward MD Primary Care Provider [phone] Allergies No known active allergies Medications Calcium [...] on file Legal Sex Female 4:17 AM VOCATIONAL REHABILITATION COUNSELOR Gender Identity Not on file Sexual Orientation [...] on file Medical Devices Implanted Type Area Marketing Regional Consultant Device Identifier Shelf Expiration Date Model / Serial / Lot Graft Alloderm [id number] Charge Per Sq Cm= 320 Units - [id number] Implanted:Qt y: 320 on 08/21/2022 by Beverly Coleman MD at [facility] Bone/Tissue /Biologic Left: Breast [employer] 03/08/2024 [id number] / [id number] / [id number] Graft Alloderm [id number] Charge Per Sq Cm= 320 Units - [id number] Implanted:Qt y: 320 on 08/21/2022 by Beverly Coleman MD at [facility] Bone/Tissue /Biologic Right: Breast [employer] 02/06/2024 [id number] / [id number] / [id number] Imp Breast Gel Inspira Soft Touch Full 695ml [facility]-695 - [id number] Implanted:Qt y: 1 on 08/21/2022 by Beverly Coleman MD at [facility] Breast Implant/[employer] Branch Manager Right: Breast [employer] [id number] 04/06/2024 SS[facility]-695 / [id number] / Explanted Type Area Marketing Regional Consultant Device Identifier Shelf Expiration Date Model / Serial / Lot Imp Breast Gel Inspira Soft Touch Full 695ml [facility]-695 - [id number] Implanted:Qt y: 1 on 08/21/2022 by Beverly Coleman MD at [facility] Explanted:Qt y: 1 on 11/01/2022 by Beverly Coleman MD at [facility] Breast Implant/[employer] Branch Manager Left: Breast [employer] [id number] 06/25/2025 [facility]-695 / [id number] / Care Teams Customer Relations Representative Relationship Specialty Start Date [place] [address] PCP - General Internal Medicine 08/21/22
--- OUTSIDE RECORDS SUMMARY | 2024-05-22 12:14 | XMS_ITS ---
Author Organization [facility] Address [address] [place] [address] Care Team Providers Care Cook'S Assistant Name Role Phone Unavailable Unavailable Unavailable Surgery Details Not on file Complications Check Surgery Details section. Procedure Estimated Blood Loss Check Surgery Details section. Procedure Findings Check Surgery Details section. Procedure Specimens Taken Check Surgery Details section.
--- NOTE | 2024-05-22 13:35 | W.ANESCHARGE ---
Anesthesia Charges Start Date/Time Anesthesia Start Date: 05/22/24 Anesthesia Start Time: 13:10 Stop Date/Time Anesthesia Stop Date: 05/22/24 Anesthesia Stop Time: 13:40
--- NOTE | 2024-05-22 13:42 | W.ANESCHARGE ---
Anesthesia Charges Start Date/Time Anesthesia Start Date: 05/22/24 Anesthesia Start Time: 13:10 Stop Date/Time Anesthesia Stop Date: 05/22/24 Anesthesia Stop Time: 13:40
--- NOTE | 2024-08-06 12:43 | ONC.NURNOTE ---
OCTAVIO for patient to call office to set up her follow up with Dr. Barber on 07/28/2024 and 08/06/2024.
== END 2024-05-22 12:13 | disposition home or self-care (01) ==
LOC: OP CLINIC 12:13
PROVIDERS: PCP Internal Medicine; Visit Provider Surgery
DX: R13.10 Dysphagia, unspecified (principal); K44.9 Diaphragmatic hernia without obstruction or gangrene; K22.2 Esophageal obstruction
CPT/HCPCS: 00731; 43239; 43249; 88305; J2704

== ENCOUNTER 2024-10-30 14:10 | Outpatient (RCR) | payer OTHER, SELFPAY ==
--- NOTE | 2024-11-04 09:18 | ONC.NURNOTE ---
Pt called to cancel appt with Klarissa Burciaga on 10/30/24.? Pt seen in August and doesn't feel like she needs to be seen at this time.? She states she is no longer having sensation changes. Updated Klarissa Burciaga PA-C, pt notified she should be seen in February of 2025. Pt verbalized understanding of plan of care.
== END 2025-02-28 23:59 | disposition home or self-care (01) ==
LOC: CCIC 14:10
PROVIDERS: PCP Internal Medicine; Visit Provider Physician Assistant
DX: C50.912 Malignant neoplasm of unspecified site of left female breast (principal); Z17.0 Estrogen receptor positive status [ER+]
CPT/HCPCS: 99214; G0463

== ENCOUNTER 2025-05-07 07:30 | Outpatient (CLI) | payer OTHER, SELFPAY | END 2025-05-07 07:31 | disposition home or self-care (01) | LOC: NFLDREF 05-08 04:09 | PROVIDERS: PCP Internal Medicine; Referring Provider Internal Medicine; Visit Provider Internal Medicine | DX: E78.5 Hyperlipidemia, unspecified (principal); I10 Essential (primary) hypertension | CPT/HCPCS: 80048; 80061 ==

== ENCOUNTER 2025-05-11 08:05 | Outpatient (CLI) | payer OTHER, SELFPAY ==
[2025-05-13 19:07] LABS: HPV Source Cervical
[2025-05-16 16:22] LABS: Pap Test Digital Imaging Done
== END 2025-05-11 08:06 | disposition home or self-care (01) ==
PROVIDERS: PCP Internal Medicine; Visit Provider Internal Medicine
DX: Z12.4 Encounter for screening for malignant neoplasm of cervix (principal)
CPT/HCPCS: 87624; 87625; 88141; 88142; 88175